=== PATIENT | female | born 1955 | race Caucasian/White ===

== ENCOUNTER 2018-03-25 07:39 | Emergency (ER) | payer MEDICARE, MEDICAID ==
[~2018-03-25] VITALS: Ht 160 cm; Wt 85.0 kg
[~2018-03-25 07:39] MED LIST: ARIP5TAB20 PO; ATOR20TA66 PO; BUSP10TA10 PO; CALC-1051 PO; CLON0.1T20 PO; DOCU250C96 PO; FERR325T28 PO; PANT40TA4 PO; TRAZ-146 PO; VENL150T3 PO; VITA1TAB37 PO
[2018-03-25] MEDS ORDERED: LORazepam 1 MG tablet PO ONE (07:50)
[2018-03-25 09:49] VITALS: BP 138/101
== END 2018-03-25 09:52 | disposition home or self-care (01) ==
LOC: ER 07:39
DX: F41.9 Anxiety disorder, unspecified (principal); E78.00 Pure hypercholesterolemia, unspecified; I10 Essential (primary) hypertension; K21.9 Gastro-esophageal reflux disease without esophagitis; E11.9 Type 2 diabetes mellitus without complications; Z60.2 Problems related to living alone; Z79.899 Other long term (current) drug therapy
CPT/HCPCS: 99284

== ENCOUNTER 2018-10-17 05:18 | Emergency (ER) | payer MEDICARE, MEDICAID ==
[~2018-10-17] VITALS: Ht 167.6 cm; Wt 75.0 kg
[~2018-10-17 05:18] MED LIST changes: -TRAZ-146 PO; +TRAZ-219 PO
[2018-10-17] MEDS ORDERED: normal saline 1000ML IV soln IVB ONE (05:25)
[2018-10-17] MEDS ORDERED: ondansetron/PF 4mg/2ml inj IV ONE ×2 (05:25→07:45)
[2018-10-17 05:48] LABS: BASOPHILS % (AUTO) 0.4 % (0-1); EOSINOPHILS # (AUTO) 0.2 X10'3 (0-0.9); EOSINOPHILS % (AUTO) 1.6 % (0-6); HEMATOCRIT 37.4 % (35.0-45.0); HEMOGLOBIN 12.6 g/dl (12.0-16.0); LYMPHOCYTES # (AUTO) 0.6 X10'3 (1.1-4.8); LYMPHOCYTES % (AUTO) 6.4 % (21-51); MEAN CORPUSCULAR HEMOGLOBIN 29.8 PG (27.0-31.0); MEAN CORPUSCULAR HGB CONC 33.6 % (33.0-36.5); MEAN CORPUSCULAR VOLUME 88.6 FL (78-98); MEAN PLATELET VOLUME 7.7 FL (7.4-10.4); MONOCYTES # (AUTO) 0.5 X10'3 (0-0.9); MONOCYTES % (AUTO) 4.8 % (2-12); NEUTROPHILS # (AUTO) 8.4 X10'3 (1.8-7.7); NEUTROPHILS % (AUTO) 86.8 % (42-75); PLATELET COUNT 303 X10'3 (140-440); RED BLOOD COUNT 4.23 X10'6 (4.20-5.60); RED CELL DISTRIBUTION WIDTH 14.2 % (11.5-14.5); WHITE BLOOD COUNT 9.7 X10'3 (4.5-11.0)
[2018-10-17 06:06] LABS: ALANINE AMINOTRANSFERASE 42 U/L (12-78); ALBUMIN 3.6 G/DL (3.4-5.0); ALBUMIN/GLOBULIN RATIO 1.1 (1.1-1.5); ALKALINE PHOSPHATASE 70 IU/L (46-116); ANION GAP 9 (8-16); ASPARTATE AMINO TRANSFERASE 18 U/L (10-37); BILIRUBIN,TOTAL 0.3 MG/DL (0.1-1.0); BLOOD UREA NITROGEN 19 MG/DL (7-18); BUN/CREATININE RATIO 21.8 (6.6-38.0); CHLORIDE 96 MMOL/L (99-107); CREATININE 0.87 MG/DL (0.40-0.90); GLUCOSE 150 MG/DL (70-104); LIPASE 116 U/L (73-393); POTASSIUM 3.7 MMOL/L (3.5-5.1); SODIUM 135 MMOL/L (135-145); TOTAL CARBON DIOXIDE 30.2 MMOL/L (24-32); TOTAL PROTEIN 6.8 G/DL (6.4-8.2); eGFR 66 ML/MIN
[2018-10-17 06:28] LABS: CLARITY,URINE SLIGHTLY CLOUDY (Clear); COLOR,URINE YELLOW (Yellow); GLUCOSE, URINE NEGATIVE (Neg); KETONES,URINE NEGATIVE (Neg); LEUKOCYTE ESTERASE ,URINE NEGATIVE (Neg); NITRITES, URINE POSITIVE (Neg); OCCULT BLOOD,URINE NEGATIVE (Neg); PH,URINE 8.5 (4.8-8.0); PROTEIN,URINE NEGATIVE (Neg); UROBILINOGEN,URINE 0.2 E.U/dL (0.2-1.0)
[2018-10-17 06:29] LABS: UA COLLECTION TYPE CLN CATCH MIDSTREAM
[2018-10-17 06:54] LABS: SQUAMOUS EPITHELIAL CELL,UR FEW /LPF (FEW)
[2018-10-17 06:56] LABS: BACTERIA,URINE 4+ /HPF (Neg); RBC,URINE 0-2 /HPF (0-2); WBC,URINE 0-4 /HPF (0-4)
[2018-10-17] MEDS ORDERED: morphine 4 MG/ML inj SYRINge IV ONE (07:45)
[2018-10-17] MEDS ORDERED: dicyclomine 10 MG capsule PO ONE (07:45)
[2018-10-17] MEDS ORDERED: LORazepam 2 mg/ml vial IV ONE ×2 (07:45→07:50)
[2018-10-17 08:03] LABS: ETHANOL < 0.010 GM/DL (0.0-0.010)
[2018-10-17] MEDS ORDERED: hyDROXYzine 50 mg/ml injection ***IM only IM ONE (11:15)
[2018-10-17] MEDS ORDERED: DICY10CA88 PO (11:17)
[2018-10-17] MEDS ORDERED: ONDA4TAB9 SL (11:17)
[2018-10-17 11:40] VITALS: BP 137/72
== END 2018-10-17 11:42 | disposition home or self-care (01) ==
LOC: ER 05:18
DX: K29.00 Acute gastritis without bleeding (principal); I10 Essential (primary) hypertension; E78.00 Pure hypercholesterolemia, unspecified; K21.9 Gastro-esophageal reflux disease without esophagitis; E11.9 Type 2 diabetes mellitus without complications; F17.200 Nicotine dependence, unspecified, uncomplicated; Z87.11 Personal history of peptic ulcer disease; Z87.19 Personal history of other diseases of the digestive system; Z79.899 Other long term (current) drug therapy; Z90.89 Acquired absence of other organs; Z60.2 Problems related to living alone
CPT/HCPCS: 36415; 80053; 80320; 81001; 83690; 85025; 87077; 87088; 87186; 96361; 96374; 96375; 96376; 99283; J2060; J2270; J2405; J3410; J7030

== ENCOUNTER 2021-11-20 10:50 | Day surgery (SDC) | payer MEDICARE, MEDICAID ==
[~2021-11-20] VITALS: Ht 165.1 cm; Wt 74.9 kg
[2021-11-20] VITALS (15 sets, daily range): BP systolic 86–137; BP diastolic 18–76
[~2021-11-20 10:50] MED LIST changes: +ARIP5TAB14 PO; -ARIP5TAB20 PO; -ATOR20TA66 PO; -BUSP10TA10 PO; -CLON0.1T20 PO; -DOCU250C96 PO; +DOXE50CA4 PO; +GABA-530 PO; +HYDR-3964 PO; +LISI20TA28 PO; +LORA-269 PO; +METO-395 PO; +PANT-47 PO; -PANT40TA4 PO; +SUCR1TAB PO; -TRAZ-219 PO
[2021-11-20 12:01] LABS: BASOPHILS # (AUTO) 0.1 X10'3 (0-0.2); BASOPHILS % (AUTO) 0.7 % (0-1); EOSINOPHILS # (AUTO) 0.3 X10'3 (0-0.9); EOSINOPHILS % (AUTO) 2.8 % (0-6); HEMATOCRIT 36.8 % (35.0-45.0); HEMOGLOBIN 12.3 g/dl (12.0-16.0); LYMPHOCYTES # (AUTO) 1.7 X10'3 (1.1-4.8); LYMPHOCYTES % (AUTO) 16.3 % (21-51); MEAN CORPUSCULAR HEMOGLOBIN 28.2 PG (27.0-31.0); MEAN CORPUSCULAR HGB CONC 33.3 g/dL (33.0-36.5); MEAN CORPUSCULAR VOLUME 84.6 FL (78-98); MEAN PLATELET VOLUME 7.5 FL (7.4-10.4); MONOCYTES # (AUTO) 0.7 X10'3 (0-0.9); MONOCYTES % (AUTO) 6.9 % (2-12); NEUTROPHILS # (AUTO) 7.7 X10'3 (1.8-7.7); NEUTROPHILS % (AUTO) 73.3 % (42-75); PLATELET COUNT 356 X10'3 (140-440); RED BLOOD COUNT 4.35 X10'6 (4.20-5.60); RED CELL DISTRIBUTION WIDTH 15.6 % (11.5-14.5); WHITE BLOOD COUNT 10.5 X10'3 (4.5-11.0)
[2021-11-20] MEDS ORDERED: midazolam 1 mg/ML 2ml injection ONE ×3 (12:33→13:37)
[2021-11-20] MEDS ORDERED: fentaNYL/PF 50MCG/1 ML 2ML syringe ONE ×2 (12:34→13:38)
[2021-11-20] MEDS ORDERED: gelatin sponge, absorbable (Gelfoam 12-7MM) sponge TP ONE (13:16)
== END 2021-11-20 16:30 | disposition home or self-care (01) ==
LOC: SSTAY O 10:50
PROVIDERS: ATTEND Preventive Medicine Aerospace Medicine
DX: K76.89 Other specified diseases of liver (principal); C78.7 Secondary malignant neoplasm of liver and intrahepatic bile duct; C20 Malignant neoplasm of rectum; I10 Essential (primary) hypertension; M85.80 Other specified disorders of bone density and structure, unspecified site; F32.9 Major depressive disorder, single episode, unspecified; G62.9 Polyneuropathy, unspecified; F17.210 Nicotine dependence, cigarettes, uncomplicated; Z98.890 Other specified postprocedural states; Z85.3 Personal history of malignant neoplasm of breast; Z79.899 Other long term (current) drug therapy
CPT/HCPCS: 36415; 47000; 77012; 85025; 88305; 88341; 88342; 99152; J2250; J3010; 99153

== ENCOUNTER 2021-12-04 11:33 | Emergency (ER) | payer MEDICARE, MEDICAID ==
[~2021-12-04] VITALS: Ht 167.6 cm; Wt 72.7 kg
[2021-12-04 11:51] VITALS: BP 150/93
--- NOTE | 2021-12-04 12:26 | NUR ---
PICC NURSE PAGED FOR PLACEMENT OF LINE.
[2021-12-04] MEDS ORDERED: morphine 4 MG/ML inj SYRINge IV PRN (12:30)
[2021-12-04] MEDS ORDERED: ondansetron/PF 4mg/2ml inj IV ONE (12:30)
[2021-12-04] MEDS ORDERED: normal saline 1000ML IV soln IVB ONE (12:30)
[2021-12-04 12:55] LABS: BASOPHILS # (AUTO) 0.1 X10'3 (0-0.2); BASOPHILS % (AUTO) 0.5 % (0-1); EOSINOPHILS # (AUTO) 0.3 X10'3 (0-0.9); EOSINOPHILS % (AUTO) 2.7 % (0-6); HEMATOCRIT 39.6 % (35.0-45.0); HEMOGLOBIN 13.1 g/dl (12.0-16.0); LYMPHOCYTES % (AUTO) 7.4 % (21-51); MEAN CORPUSCULAR HEMOGLOBIN 28.4 PG (27.0-31.0); MEAN CORPUSCULAR HGB CONC 33.1 g/dL (33.0-36.5); MEAN CORPUSCULAR VOLUME 85.7 FL (78-98); MEAN PLATELET VOLUME 8.1 FL (7.4-10.4); MONOCYTES # (AUTO) 0.8 X10'3 (0-0.9); MONOCYTES % (AUTO) 6.5 % (2-12); NEUTROPHILS # (AUTO) 10.7 X10'3 (1.8-7.7); NEUTROPHILS % (AUTO) 82.9 % (42-75); PLATELET COUNT 366 X10'3 (140-440); RED BLOOD COUNT 4.62 X10'6 (4.20-5.60); WHITE BLOOD COUNT 12.9 X10'3 (4.5-11.0)
[2021-12-04 13:07] LABS: ALANINE AMINOTRANSFERASE 16 U/L (12-78); ALBUMIN 3.6 G/DL (3.4-5.0); ALKALINE PHOSPHATASE 123 IU/L (46-116); ANION GAP 13 (8-16); ASPARTATE AMINO TRANSFERASE 13 U/L (10-37); BILIRUBIN,TOTAL 0.4 MG/DL (0.1-1.0); BLOOD UREA NITROGEN 13 MG/DL (7-18); BUN/CREATININE RATIO 14.1 (6.6-38.0); CHLORIDE 101 MMOL/L (99-107); CREATININE 0.92 MG/DL (0.40-0.90); GLUCOSE 136 MG/DL (70-104); LIPASE 200 U/L (73-393); POTASSIUM 3.8 MMOL/L (3.5-5.1); SODIUM 136 MMOL/L (135-145); TOTAL CARBON DIOXIDE 22.2 MMOL/L (24-32); TOTAL PROTEIN 7.1 G/DL (6.4-8.2); eGFR 61 ML/MIN
[2021-12-04] MEDS ORDERED: morphine 4 MG/ML inj SYRINge IM ONE (13:55)
[2021-12-04] MEDS ORDERED: ondansetron 4mg rapidly disintigrating tab PO ONE (13:55)
[2021-12-04] MEDS ORDERED: ONDA4TAB12 PO (14:56)
--- NOTE | 2021-12-04 15:34 | NUR ---
CALLED NANCY, PTS FRIEND, FOR PATIENT LOFT RIGGER.
== END 2021-12-04 15:36 | disposition home or self-care (01) ==
LOC: ER 11:33
DX: R10.84 Generalized abdominal pain (principal); R11.0 Nausea; E78.00 Pure hypercholesterolemia, unspecified; I10 Essential (primary) hypertension; K21.9 Gastro-esophageal reflux disease without esophagitis; E11.9 Type 2 diabetes mellitus without complications; F41.9 Anxiety disorder, unspecified; F32.9 Major depressive disorder, single episode, unspecified; Z87.11 Personal history of peptic ulcer disease; Z86.2 Personal history of diseases of the blood and blood-forming organs and certain disorders involving the immune mechanism; Z90.89 Acquired absence of other organs; Z98.890 Other specified postprocedural states; Z72.89 Other problems related to lifestyle; Z60.2 Problems related to living alone; Z79.899 Other long term (current) drug therapy
CPT/HCPCS: 36415; 80053; 83690; 85025; 96372; 99284; J2270

== ENCOUNTER 2021-12-08 15:16 | Inpatient (IN) | payer MEDICARE, MEDICAID ==
[~2021-12-08] VITALS: Ht 167.6 cm; Wt 72.7 kg
[~2021-12-08 15:16] MED LIST changes: +ONDA4TAB12 PO
[2021-12-08] MEDS ORDERED: ondansetron/PF 4mg/2ml inj IV ONE (15:35)
[2021-12-08] MEDS ORDERED: morphine 4 MG/ML inj SYRINge IV PRN (15:35)
[2021-12-08] MEDS ORDERED: normal saline 1000ML IV soln IVB ONE (15:35)
[2021-12-08 16:13] LABS: BASOPHILS # (AUTO) 0.1 X10'3 (0-0.2); BASOPHILS % (AUTO) 0.8 % (0-1); EOSINOPHILS # (AUTO) 0.3 X10'3 (0-0.9); EOSINOPHILS % (AUTO) 2.1 % (0-6); HEMOGLOBIN 14.4 g/dl (12.0-16.0); LYMPHOCYTES # (AUTO) 1.3 X10'3 (1.1-4.8); LYMPHOCYTES % (AUTO) 8.1 % (21-51); MEAN CORPUSCULAR HEMOGLOBIN 28.4 PG (27.0-31.0); MEAN CORPUSCULAR HGB CONC 33.5 g/dL (33.0-36.5); MEAN CORPUSCULAR VOLUME 84.8 FL (78-98); MONOCYTES # (AUTO) 1.2 X10'3 (0-0.9); MONOCYTES % (AUTO) 7.8 % (2-12); NEUTROPHILS # (AUTO) 12.8 X10'3 (1.8-7.7); NEUTROPHILS % (AUTO) 81.2 % (42-75); PLATELET COUNT 417 X10'3 (140-440); RED BLOOD COUNT 5.08 X10'6 (4.20-5.60); RED CELL DISTRIBUTION WIDTH 15.9 % (11.5-14.5); WHITE BLOOD COUNT 15.8 X10'3 (4.5-11.0)
[2021-12-08 16:18] LABS: ALANINE AMINOTRANSFERASE 18 U/L (12-78); ALBUMIN 4.2 G/DL (3.4-5.0); ALBUMIN/GLOBULIN RATIO 1.1 (1.1-1.5); ALKALINE PHOSPHATASE 143 IU/L (46-116); ANION GAP 11 (8-16); ASPARTATE AMINO TRANSFERASE 24 U/L (10-37); BILIRUBIN,TOTAL 0.4 MG/DL (0.1-1.0); BLOOD UREA NITROGEN 14 MG/DL (7-18); BUN/CREATININE RATIO 16.9 (6.6-38.0); CALCIUM 10.4 MG/DL (8.5-10.1); CHLORIDE 99 MMOL/L (99-107); CREATININE 0.83 MG/DL (0.40-0.90); GLUCOSE 105 MG/DL (70-104); LIPASE 110 U/L (73-393); POTASSIUM 4.5 MMOL/L (3.5-5.1); SODIUM 137 MMOL/L (135-145); TOTAL CARBON DIOXIDE 27.3 MMOL/L (24-32); eGFR 69 ML/MIN
[2021-12-08] MEDS ORDERED: iohexol 300mg/ml 100ml inj. ONE (17:32)
--- NOTE | 2021-12-08 18:05 | NUR ---
pt up to bsc independently, urine sent to lab.
[2021-12-08 18:14] LABS: CLARITY,URINE CLEAR (Clear); COLOR,URINE YELLOW (Yellow); GLUCOSE, URINE NEGATIVE (Neg); KETONES,URINE NEGATIVE (Neg); LEUKOCYTE ESTERASE ,URINE NEGATIVE (Neg); NITRITES, URINE NEGATIVE (Neg); OCCULT BLOOD,URINE NEGATIVE (Neg); PROTEIN,URINE NEGATIVE (Neg); UA COLLECTION TYPE CLN CATCH MIDSTREAM; UROBILINOGEN,URINE 0.2 E.U/dL (0.2-1.0)
[2021-12-08] MEDS ORDERED: LORazepam 2 mg/ml vial IV ONE (19:45)
[2021-12-08] MEDS ORDERED: BUSP5TAB3 (21:38)
[2021-12-08] MEDS ORDERED: ERGO400C2 (21:38)
[2021-12-08] MEDS ORDERED: PROP10TA10 PO (21:38)
[2021-12-08] MEDS ORDERED: NORT25CA PO (21:38)
[2021-12-08] MEDS ORDERED: OMEG1CAP46 PO (21:43)
[2021-12-08] MEDS ORDERED: PUMP300C PO (21:43)
[2021-12-09] VITALS (24 sets, daily range): BP systolic 100–182; BP diastolic 61–123
[2021-12-09] MEDS ORDERED: mag hydrox/Alum hydrox/simeth 30ml oral suspension PO PRN (00:05)
[2021-12-09] MEDS ORDERED: diphenhydrAMINE 50 mg/ml inj IV PRN (00:05)
[2021-12-09] MEDS ORDERED: acetaminophen 325mg tablet PO PRN (00:05)
[2021-12-09] MEDS ORDERED: acetaminophen 650mg rectal suppository RC PRN (00:05)
[2021-12-09] MEDS ORDERED: diphenhydrAMINE 25mg capsule PO PRN (00:05)
[2021-12-09] MEDS ORDERED: bisacodyl 10mg suppository rectal RC PRN (00:05)
[2021-12-09] MEDS ORDERED: magnesium hydroxide 30ml (MOM) UD suspension PO PRN (00:05)
--- NOTE | 2021-12-09 02:08 | NUR ---
Called report to SCU room 345.
[2021-12-09] MEDS: normal saline 1000ml 1,000 ML IV SCH ×3 (02:58→22:22)
[2021-12-09] MEDS: acetaminophen 325mg tablet PO PRN ×3 (02:59→05:10)
[2021-12-09] MEDS: LORazepam 1 MG tablet PO PRN (02:59)
[2021-12-09 06:16] LABS: APTT 27 SECONDS (22-32)
--- NOTE | 2021-12-09 07:00 | NUR ---
Patient in room [facility] 345. I have received report from BRANDON COFFEY and had the opportunity to ask questions and assume patient care.
[2021-12-09 07:31] LABS: MAGNESIUM 1.9 MG/DL (1.5-2.4); PHOSPHORUS 4.4 MG/DL (2.3-4.5)
[2021-12-09] MEDS: venlafaxine XR 75mg capsule (Q24H) PO SCH (08:00)
[2021-12-09] MEDS: ferrous sulfate 325mg tablet PO SCH (08:00)
[2021-12-09] MEDS: docusate sod 100mg capsule PO SCH ×2 (08:00→19:27)
[2021-12-09] MEDS ORDERED: lisinopril 20mg tablet PO SCH (08:00)
[2021-12-09 08:49] LABS: BASOPHILS % (AUTO) 0.6 % (0-1); EOSINOPHILS # (AUTO) 0.3 X10'3 (0-0.9); HEMATOCRIT 39.9 % (35.0-45.0); HEMOGLOBIN 13.2 g/dl (12.0-16.0); LYMPHOCYTES # (AUTO) 1.5 X10'3 (1.1-4.8); LYMPHOCYTES % (AUTO) 17.6 % (21-51); MEAN CORPUSCULAR HEMOGLOBIN 28.6 PG (27.0-31.0); MEAN CORPUSCULAR HGB CONC 33.2 g/dL (33.0-36.5); MEAN CORPUSCULAR VOLUME 86.1 FL (78-98); MEAN PLATELET VOLUME 7.9 FL (7.4-10.4); MONOCYTES # (AUTO) 0.8 X10'3 (0-0.9); MONOCYTES % (AUTO) 9.4 % (2-12); NEUTROPHILS # (AUTO) 5.9 X10'3 (1.8-7.7); NEUTROPHILS % (AUTO) 69.4 % (42-75); PLATELET COUNT 346 X10'3 (140-440); RED BLOOD COUNT 4.64 X10'6 (4.20-5.60); RED CELL DISTRIBUTION WIDTH 16.1 % (11.5-14.5); WHITE BLOOD COUNT 8.5 X10'3 (4.5-11.0)
[2021-12-09] MEDS ORDERED: BUPIVAcaine/PF 2.5mg/ml (0.25%) 10ml vial ONE (09:07)
[2021-12-09] MEDS ORDERED: tobramycin 40mg/ml inj ONE (09:07)
[2021-12-09] MEDS ORDERED: LIDOcaine 1% W/epiNEPHrine 1:100,000 20ml vial ONE (09:08)
[2021-12-09] MEDS: pantoprazole 40MG/NS 100ML BAG 100 ML IV SCH (09:08)
--- NOTE | 2021-12-09 09:13 | NUR ---
PAGER ID: [phone] MESSAGE: [id number] Laws, S: patient very anxious and tearful regarding surgery. Ativan order is daily. would you like a one time dose? thank you! glenn [phone]
[2021-12-09] MEDS: metoprolol succinate 25mg (24-HOUR) SR. Tablet PO SCH (09:14)
[2021-12-09] MEDS ORDERED: LORazepam 2 mg/ml vial IV ONE ×3 (09:30→19:05)
[2021-12-09 10:14] LABS: ALANINE AMINOTRANSFERASE 15 U/L (12-78); ALBUMIN 3.6 G/DL (3.4-5.0); ALBUMIN/GLOBULIN RATIO 1.2 (1.1-1.5); ALKALINE PHOSPHATASE 119 IU/L (46-116); ANION GAP 9 (8-16); ASPARTATE AMINO TRANSFERASE 11 U/L (10-37); BILIRUBIN,TOTAL 0.3 MG/DL (0.1-1.0); BLOOD UREA NITROGEN 11 MG/DL (7-18); BUN/CREATININE RATIO 18.6 (6.6-38.0); CALCIUM 8.7 MG/DL (8.5-10.1); CHLORIDE 107 MMOL/L (99-107); CREATININE 0.59 MG/DL (0.40-0.90); GLUCOSE 102 MG/DL (70-104); POTASSIUM 4.6 MMOL/L (3.5-5.1); SODIUM 140 MMOL/L (135-145); TOTAL CARBON DIOXIDE 23.6 MMOL/L (24-32); TOTAL PROTEIN 6.7 G/DL (6.4-8.2); eGFR > 90 ML/MIN
[2021-12-09 10:15] LABS: PREALBUMIN 28.6 MG/DL (19-36)
[2021-12-09] MEDS: piperacillin/tazo 3.375gm/50ml 50 ML IV SCH ×3 (10:22→23:47)
[2021-12-09] MEDS ORDERED: midazolam 1 mg/ML 2ml injection ONE (10:30)
[2021-12-09] MEDS ORDERED: fentaNYL /PF 50mcg/ml 5ml ampule ONE (10:31)
[2021-12-09] MEDS ORDERED: dexmedetomidine 200mcg/2ml inj. IV ONE (10:33)
[2021-12-09] MEDS ORDERED: hydrALAZINE 20mg/ml inj. IV PRN (10:40)
[2021-12-09] MEDS ORDERED: morphine 2 MG/ML inj. syringe IV PRN (10:40)
[2021-12-09] MEDS ORDERED: ringers solution, lacted 1,000 ML IV SCH (10:40)
[2021-12-09] MEDS ORDERED: ondansetron/PF 4mg/2ml inj IV PRN (10:40)
[2021-12-09] MEDS ORDERED: morphine 4 MG/ML inj SYRINge IV PRN (10:40)
[2021-12-09] MEDS ORDERED: fentaNYL/PF 50MCG/1 ML 2ML syringe IV PRN ×2 (10:40)
[2021-12-09] MEDS ORDERED: labetalol 20mg/4ml (5mg/ml) syringe IV PRN (10:40)
[2021-12-09] MEDS ORDERED: sevoflurane 250ml liquid IH ONE (10:55)
[2021-12-09] MEDS ORDERED: desflurane 240ml liquid inh. IH ONE (10:55)
[2021-12-09] MEDS ORDERED: metroNIDAZOLE-Flagyl 500mg/NS 100 ML IV ONE (11:11)
--- NOTE | 2021-12-09 11:11 | NUR ---
report called to ERLINDA Baron.
[2021-12-09] MEDS ORDERED: dexamethasone sod phosphate 4mg/ml inj. ONE (11:19)
[2021-12-09] MEDS ORDERED: ondansetron/PF 4mg/2ml inj ONE (11:19)
[2021-12-09] MEDS ORDERED: propofol inj 20 ML IV ONE (11:21)
[2021-12-09] MEDS ORDERED: LIDOcaine 2% (20mg/ml) 5ml vial ONE (11:21)
[2021-12-09] MEDS ORDERED: glycopyrrolate 0.2mg/ml inj ONE (11:22)
[2021-12-09] MEDS ORDERED: rocuronium 10mg/ml inj IV ONE ×2 (11:22→12:01)
[2021-12-09] MEDS ORDERED: neostigmine methylsulfate 1 MG/ML 10ml vial ONE (11:22)
[2021-12-09] MEDS ORDERED: povidone-iodine 10% ointment 1 APPLIC APPLIC TP ONE (12:43)
[2021-12-09] MEDS ORDERED: labetalol 20mg/4ml (5mg/ml) syringe IV ONE ×2 (13:29→14:02)
--- NOTE | 2021-12-09 14:30 | NUR ---
Received from OR via hospital bed, accompanied by Anesthesiologist DR KRISHNAMURTHY and report given by Anesthesiolgist. PT PRESENT WITH 20G RIGHT FOOT, 2X HARJEET DRAINS ON RIGHT ABD, WITH COLECTOMY. VSS. Addendum: 12/09/21 at 1521 by Divine Jain RN RN Amended: Links added.
[2021-12-09] MEDS ORDERED: HYDROmorph./NS 0.2 mg/ml CADD 100 ML IV SCH (14:40)
[2021-12-09] MEDS ORDERED: HYDROmorphone (Dilaudid)/NS 0.2 mg/ml 100ml CADD ONE (15:11)
--- NOTE | 2021-12-09 15:20 | NUR ---
PIC NURSE AT BEDSIDE PLACING PIV. Addendum: 12/09/21 at 1525 by Divine Jain RN RN Amended: Links added.
[2021-12-09] MEDS ORDERED: ceFOXitin 1 GM/D5W 50mL IVPB 50 ML IV SCH (16:00)
--- NOTE | 2021-12-09 16:13 | NUR ---
Received report from ERLINDA Haskins. Awaiting patient arrival.
--- NOTE | 2021-12-09 16:30 | NUR ---
Report called to receiving nurse MARIAN COFFEY. Transferred via HOSPITAL BED WITH UPPER AND LOWER DENTURES IN A DENTURE CASE IN A BAG HOOKED TO THE PT CHART. Belongings WERE LEFT IN PT [id number]. BED IN LOW LOCKED POSITION WITH CALL LIGHT IN REACH. Special Issues communicated to receiving nurse. Addendum: 12/09/21 at 1638 by Divine Jain RN RN Amended: Links added.
[2021-12-09] MEDS: HYDROmorph./NS 0.2 mg/ml CADD 100 ML IV SCH ×4 (17:00→21:31)
[2021-12-09] MEDS ORDERED: naloxone 0.4 mg/ml inj IV PRN (17:00)
[2021-12-09] MEDS: ceFOXitin inj 1,000 MG in normal saline 100ml IV soln 100 ML IV SCH ×2 (17:16→23:46)
--- NOTE | 2021-12-09 17:24 | NUR ---
CADD order was corrected in recovery room. Medication was already infusing prior to arrival.
--- NOTE | 2021-12-09 18:15 | NUR ---
Patient in room [facility] 345A. I have received report from ERLINDA Cardona and SN Vaughn and had the opportunity to ask questions and assume patient care.
--- NOTE | 2021-12-09 18:18 | NUR ---
Problems reprioritized. Patient report given, questions answered & plan of care reviewed with FERMÍN COFFEY.
--- NOTE | 2021-12-09 18:22 | NUR ---
Student documentation: I have reviewed and agree with all interventions, assessments performed and documented by SN Vaughn. Student Medication Administration: For this medication-pass time frame, all medication were reviewed, dispensed, administered and documented per hospital policy by SN Vaughn.
[2021-12-09] MEDS ORDERED: HYDROmorphone inj. 0.5 MG/0.5 ML DISP.SYRIN IV ONE (19:05)
--- NOTE | 2021-12-09 19:25 | NUR ---
Patient's 1600 dose of Mefoxin 1000mg/NS 100ml bag was hung at 1716 without being reconstituted. Notified Pharmacist, and was instructed to make a note and give the next dose on time. Next dose of Mefoxin will be administered at or around 0000 12/10/2021.
[2021-12-09] MEDS: metroNIDAZOLE-Flagyl 500mg/NS 100 ML IV SCH (19:28)
[2021-12-09] MEDS ORDERED: temazepam 15mg capsule PO PRN (21:00)
[2021-12-09] MEDS: doxepin 25mg capsule PO SCH (22:21)
[2021-12-09] MEDS: polyethylene glycol 3350 17gm powd pack PO SCH (22:21)
[2021-12-09] MEDS: gabapentin 300mg capsule PO SCH (22:21)
[2021-12-10] VITALS: BP_SYST 149; BP_SYST 170; BP_DIAS 85; BP_DIAS 97
[2021-12-10] MEDS: HYDROmorph./NS 0.2 mg/ml CADD 100 ML IV SCH ×12 (00:12→23:00)
[2021-12-10] MEDS: metroNIDAZOLE-Flagyl 500mg/NS 100 ML IV SCH ×3 (01:04→15:29)
[2021-12-10 04:00] VITALS: BP 128/69
[2021-12-10 05:59] LABS: BASOPHILS % (AUTO) 0.2 % (0-1); EOSINOPHILS % (AUTO) 0 % (0-6); HEMATOCRIT 37.7 % (35.0-45.0); HEMOGLOBIN 12.3 g/dl (12.0-16.0); LYMPHOCYTES # (AUTO) 1.1 X10'3 (1.1-4.8); LYMPHOCYTES % (AUTO) 5.5 % (21-51); MEAN CORPUSCULAR HEMOGLOBIN 28.1 PG (27.0-31.0); MEAN CORPUSCULAR HGB CONC 32.5 g/dL (33.0-36.5); MEAN CORPUSCULAR VOLUME 86.3 FL (78-98); MEAN PLATELET VOLUME 8.3 FL (7.4-10.4); MONOCYTES # (AUTO) 1.8 X10'3 (0-0.9); MONOCYTES % (AUTO) 9.4 % (2-12); NEUTROPHILS # (AUTO) 16.2 X10'3 (1.8-7.7); NEUTROPHILS % (AUTO) 84.9 % (42-75); PLATELET COUNT 374 X10'3 (140-440); RED BLOOD COUNT 4.37 X10'6 (4.20-5.60); RED CELL DISTRIBUTION WIDTH 16.3 % (11.5-14.5); WHITE BLOOD COUNT 19.1 X10'3 (4.5-11.0)
[2021-12-10] MEDS: normal saline 1000ml 1,000 ML IV SCH ×3 (06:05→23:36)
--- NOTE | 2021-12-10 06:30 | NUR ---
Problems reprioritized. Patient report given, questions answered & plan of care reviewed with ERLINDA Cardona.
[2021-12-10 06:39] LABS: ALANINE AMINOTRANSFERASE 17 U/L (12-78); ALBUMIN 3.2 G/DL (3.4-5.0); ALBUMIN/GLOBULIN RATIO 1.1 (1.1-1.5); ALKALINE PHOSPHATASE 102 IU/L (46-116); ANION GAP 11 (8-16); ASPARTATE AMINO TRANSFERASE 17 U/L (10-37); BILIRUBIN,TOTAL 0.3 MG/DL (0.1-1.0); BLOOD UREA NITROGEN 9 MG/DL (7-18); BUN/CREATININE RATIO 15.3 (6.6-38.0); CALCIUM 8.2 MG/DL (8.5-10.1); CHLORIDE 106 MMOL/L (99-107); CHOL/HDL RATIO 2.4 (0.00-4.99); CHOLESTEROL 127 MG/DL (0-200); CREATININE 0.59 MG/DL (0.40-0.90); GLUCOSE 127 MG/DL (70-104); HDL CHOLESTEROL 52 MG/DL (35-60); LDL CHOLESTEROL 57 MG/DL (50-100); POTASSIUM 4.4 MMOL/L (3.5-5.1); SODIUM 141 MMOL/L (135-145); TOTAL CARBON DIOXIDE 23.8 MMOL/L (24-32); TOTAL PROTEIN 6.1 G/DL (6.4-8.2); TRIGLYCERIDES 90 MG/DL (20-135); eGFR > 90 ML/MIN
[2021-12-10 07:00] VITALS: BP 144/76
--- NOTE | 2021-12-10 07:52 | NUR ---
Page sent to PICC RN... [id number] Vanessa Gonzáles: patient needs PIV. her foot IV came out on noc shift. if you have time, please and thank you!:) glenn [phone]
[2021-12-10] MEDS: ceFOXitin inj 1,000 MG in normal saline 100ml IV soln 100 ML IV SCH ×2 (07:59→15:29)
[2021-12-10] MEDS: venlafaxine XR 75mg capsule (Q24H) PO SCH (07:59)
[2021-12-10] MEDS: polyethylene glycol 3350 17gm powd pack PO SCH ×3 (07:59→21:52)
[2021-12-10] MEDS: ferrous sulfate 325mg tablet PO SCH (07:59)
[2021-12-10] MEDS: docusate sod 100mg capsule PO SCH ×2 (07:59→19:24)
[2021-12-10] MEDS: metoprolol succinate 25mg (24-HOUR) SR. Tablet PO SCH (08:06)
[2021-12-10] MEDS: ondansetron/PF 4mg/2ml inj IV PRN ×2 (08:14→18:33)
[2021-12-10] MEDS: LORazepam 2 mg/ml vial IV PRN (08:18)
[2021-12-10] MEDS: piperacillin/tazo 3.375gm/50ml 50 ML IV SCH ×2 (09:02→16:31)
[2021-12-10] MEDS: pantoprazole 40MG/NS 100ML BAG 100 ML IV SCH (10:25)
[2021-12-10 12:47] VITALS: BP 118/74
--- NOTE | 2021-12-10 17:28 | NUR ---
DAUGHERTY CATHETER DC'D PER MD ORDERS. NO COMPLICATIONS.
--- NOTE | 2021-12-10 18:30 | NUR ---
Problems reprioritized. Patient report given, questions answered & plan of care reviewed with ERLINDA KOVACS.
[2021-12-10] MEDS: CADD PCA waste documentation MC PRN (19:39)
[2021-12-10 20:00] VITALS: BP 105/55
[2021-12-10] MEDS: gabapentin 300mg capsule PO SCH ×2 (21:00→21:52)
[2021-12-10] MEDS: doxepin 25mg capsule PO SCH (21:52)
[2021-12-11] VITALS: BP 100/56
[2021-12-11] MEDS: piperacillin/tazo 3.375gm/50ml 50 ML IV SCH ×4 (00:26→23:51)
[2021-12-11] MEDS: ondansetron 4mg rapidly disintigrating tab PO PRN ×2 (00:41→07:23)
[2021-12-11] MEDS: LORazepam 1 MG tablet PO PRN ×3 (00:41→23:21)
[2021-12-11] MEDS: HYDROmorph./NS 0.2 mg/ml CADD 100 ML IV SCH ×12 (01:00→23:00)
--- NOTE | 2021-12-11 06:10 | NUR ---
Problems reprioritized. Patient report given, questions answered & plan of care reviewed with ERLINDA Cardona.
[2021-12-11 06:20] LABS: BASOPHILS % (AUTO) 0.3 % (0-1); EOSINOPHILS # (AUTO) 0.1 X10'3 (0-0.9); EOSINOPHILS % (AUTO) 0.7 % (0-6); HEMATOCRIT 31.7 % (35.0-45.0); HEMOGLOBIN 10.3 g/dl (12.0-16.0); LYMPHOCYTES # (AUTO) 1.1 X10'3 (1.1-4.8); LYMPHOCYTES % (AUTO) 8.1 % (21-51); MEAN CORPUSCULAR HEMOGLOBIN 28.5 PG (27.0-31.0); MEAN CORPUSCULAR HGB CONC 32.4 g/dL (33.0-36.5); MEAN CORPUSCULAR VOLUME 88.1 FL (78-98); MEAN PLATELET VOLUME 8.3 FL (7.4-10.4); MONOCYTES # (AUTO) 1.2 X10'3 (0-0.9); MONOCYTES % (AUTO) 8.8 % (2-12); NEUTROPHILS % (AUTO) 82.1 % (42-75); PLATELET COUNT 292 X10'3 (140-440); RED CELL DISTRIBUTION WIDTH 16.2 % (11.5-14.5); WHITE BLOOD COUNT 13.4 X10'3 (4.5-11.0)
[2021-12-11 06:44] LABS: ALANINE AMINOTRANSFERASE 17 U/L (12-78); ALBUMIN 2.6 G/DL (3.4-5.0); ALKALINE PHOSPHATASE 75 IU/L (46-116); ANION GAP 8 (8-16); ASPARTATE AMINO TRANSFERASE 24 U/L (10-37); BILIRUBIN,TOTAL 0.3 MG/DL (0.1-1.0); BLOOD UREA NITROGEN 7 MG/DL (7-18); BUN/CREATININE RATIO 12.1 (6.6-38.0); CALCIUM 7.8 MG/DL (8.5-10.1); CHLORIDE 108 MMOL/L (99-107); CREATININE 0.58 MG/DL (0.40-0.90); GLUCOSE 116 MG/DL (70-104); POTASSIUM 4.1 MMOL/L (3.5-5.1); SODIUM 141 MMOL/L (135-145); TOTAL CARBON DIOXIDE 24.8 MMOL/L (24-32); TOTAL PROTEIN 5.3 G/DL (6.4-8.2); eGFR > 90 ML/MIN
[2021-12-11 07:00] VITALS: BP 91/57
[2021-12-11] MEDS: venlafaxine XR 75mg capsule (Q24H) PO SCH (08:00)
[2021-12-11] MEDS: metoprolol succinate 25mg (24-HOUR) SR. Tablet PO SCH (08:00)
[2021-12-11] MEDS: ferrous sulfate 325mg tablet PO SCH (08:00)
[2021-12-11] MEDS ORDERED: magnesium hydroxide 30ml (MOM) UD suspension PO ONE (08:15)
[2021-12-11] MEDS: pantoprazole 40MG/NS 100ML BAG 100 ML IV SCH (09:09)
[2021-12-11] MEDS: polyethylene glycol 3350 17gm powd pack PO SCH ×3 (09:09→22:18)
[2021-12-11] MEDS: docusate sod 100mg capsule PO SCH ×2 (09:10→22:17)
--- NOTE | 2021-12-11 10:00 | NUR ---
bladder scan showed 0mL in bladder. Hospitalist aware.
[2021-12-11 11:00] VITALS: BP 122/74
[2021-12-11] MEDS: ondansetron/PF 4mg/2ml inj IV PRN ×2 (11:55→20:32)
[2021-12-11] MEDS: normal saline 1000ml 1,000 ML IV SCH ×2 (12:04→22:31)
--- NOTE | 2021-12-11 15:48 | NUR ---
[facility] assessment for ostomy education and hand outs. Pt is s/p laparoscopic low anterior resection, complicated by involvement of the rectovaginal septum, sigmoid colostomy. Pt found to have liver metastasis, left pelvic side wall implant, mid rectal mass adherent to and involving the rectovaginal septum, distal rectum able to be divided, TME performed, closed peritoneum over the empty pelvis including the bilateral fallopian tubes and dome of the uterus. Pt unable to participate in education today due to nausea. Will re approach tomorrow. Provided her with colostomy packet and To Go Kit hand out. See wound note Addendum: 12/11/21 at 1555 by Megan Britton RN Amended: Links added.
[2021-12-11] MEDS: CADD PCA waste documentation MC PRN (17:49)
--- NOTE | 2021-12-11 18:23 | NUR ---
Problems reprioritized. Patient report given, questions answered & plan of care reviewed with ERLINDA Moore.
[2021-12-11 20:00] VITALS: BP 125/70
[2021-12-11] MEDS: pantoprazole 40mg Tablet.DR PO SCH (22:16)
[2021-12-11] MEDS: doxepin 25mg capsule PO SCH (22:18)
[2021-12-11] MEDS: gabapentin 300mg capsule PO SCH (23:18)
[2021-12-12] VITALS: BP 130/81
[2021-12-12] MEDS: HYDROmorph./NS 0.2 mg/ml CADD 100 ML IV SCH ×7 (01:00→13:00)
[2021-12-12] MEDS: ondansetron/PF 4mg/2ml inj IV PRN (02:16)
[2021-12-12 06:16] LABS: BASOPHILS # (AUTO) 0.1 X10'3 (0-0.2); BASOPHILS % (AUTO) 0.8 % (0-1); EOSINOPHILS # (AUTO) 0.3 X10'3 (0-0.9); HEMATOCRIT 32.2 % (35.0-45.0); HEMOGLOBIN 10.5 g/dl (12.0-16.0); LYMPHOCYTES # (AUTO) 1.2 X10'3 (1.1-4.8); LYMPHOCYTES % (AUTO) 11.5 % (21-51); MEAN CORPUSCULAR HEMOGLOBIN 28.2 PG (27.0-31.0); MEAN CORPUSCULAR HGB CONC 32.4 g/dL (33.0-36.5); MEAN PLATELET VOLUME 8.4 FL (7.4-10.4); MONOCYTES # (AUTO) 0.9 X10'3 (0-0.9); MONOCYTES % (AUTO) 8.8 % (2-12); NEUTROPHILS # (AUTO) 8.2 X10'3 (1.8-7.7); NEUTROPHILS % (AUTO) 75.9 % (42-75); PLATELET COUNT 311 X10'3 (140-440); RED CELL DISTRIBUTION WIDTH 16.3 % (11.5-14.5); WHITE BLOOD COUNT 10.8 X10'3 (4.5-11.0)
[2021-12-12 06:35] LABS: ALANINE AMINOTRANSFERASE 18 U/L (12-78); ALBUMIN 2.7 G/DL (3.4-5.0); ALKALINE PHOSPHATASE 78 IU/L (46-116); ANION GAP 6 (8-16); ASPARTATE AMINO TRANSFERASE 20 U/L (10-37); BILIRUBIN,TOTAL 0.5 MG/DL (0.1-1.0); BLOOD UREA NITROGEN 5 MG/DL (7-18); BUN/CREATININE RATIO 7.8 (6.6-38.0); C-REACTIVE PROTEIN 10.85 MG/DL (0.0-0.5); CALCIUM 7.6 MG/DL (8.5-10.1); CHLORIDE 108 MMOL/L (99-107); CREATININE 0.64 MG/DL (0.40-0.90); GLUCOSE 99 MG/DL (70-104); POTASSIUM 3.9 MMOL/L (3.5-5.1); SODIUM 143 MMOL/L (135-145); TOTAL CARBON DIOXIDE 28.9 MMOL/L (24-32); TOTAL PROTEIN 5.5 G/DL (6.4-8.2); eGFR > 90 ML/MIN
[2021-12-12 07:00] VITALS: BP 124/75
[2021-12-12] MEDS: docusate sod 100mg capsule PO SCH ×2 (07:59→20:31)
[2021-12-12] MEDS: metoprolol succinate 25mg (24-HOUR) SR. Tablet PO SCH (07:59)
[2021-12-12] MEDS: pantoprazole 40mg Tablet.DR PO SCH ×2 (08:00→20:20)
[2021-12-12] MEDS: ferrous sulfate 325mg tablet PO SCH (08:00)
[2021-12-12] MEDS: piperacillin/tazo 3.375gm/50ml 50 ML IV SCH ×3 (08:00→23:33)
[2021-12-12] MEDS: venlafaxine XR 75mg capsule (Q24H) PO SCH (08:00)
[2021-12-12] MEDS: polyethylene glycol 3350 17gm powd pack PO SCH ×3 (08:00→20:20)
[2021-12-12] MEDS: ondansetron 4mg rapidly disintigrating tab PO PRN ×2 (08:18→15:13)
[2021-12-12] MEDS: normal saline 1000ml 1,000 ML IV SCH ×3 (09:10→20:28)
[2021-12-12 12:32] VITALS: BP 115/68
[2021-12-12] MEDS: CADD PCA waste documentation MC PRN (14:25)
[2021-12-12] MEDS ORDERED: HYDROcodone/acetaminophen 10/325mg tab PO PRN (14:30)
[2021-12-12] MEDS: HYDROcodone/acetaminophen 10/325mg tab PO PRN ×2 (15:04→20:19)
[2021-12-12] MEDS: HYDROmorphone inj. 0.5 MG/0.5 ML DISP.SYRIN IV PRN ×2 (18:00→23:03)
--- NOTE | 2021-12-12 18:35 | NUR ---
Problems reprioritized. Patient report given, questions answered & plan of care reviewed with ERLINDA MATHEWS.
[2021-12-12 20:00] VITALS: BP 123/77
--- NOTE | 2021-12-12 20:18 | NUR ---
Pt was alert and oriented x4. Pt states she was just medicated for pain, and would like to have teaching done at another time. Pt is requesting to have mirror provided for teaching. Reviewed with pt how to burp pouch and resources once pt is discharged with home health. Pt did consent to having secure start program started. Diverting sigmoid colostomy LMQ stoma is pink, edematous and buoyant through pouch. Pt requested that have more teaching done tomorrow. Pt states she might be discharged home this weekend, not sure if shes having home health. Educated pt on how to order ostomy supplies are special order item. Pt states understanding. Addendum: 12/12/21 at 2023 by Elisa Duke RN Amended: Links added. Addendum: 12/13/21 at 0703 by Yulisa Obregon RN Patient in room [facility] 345. I have received report from Teresa COFFEY and had the opportunity to ask questions and assume patient care.
[2021-12-12] MEDS: doxepin 25mg capsule PO SCH (20:30)
[2021-12-12] MEDS: gabapentin 300mg capsule PO SCH (20:30)
[2021-12-13] VITALS: BP 121/71
[2021-12-13] MEDS: HYDROcodone/acetaminophen 10/325mg tab PO PRN ×5 (00:44→20:38)
[2021-12-13] MEDS: HYDROmorphone inj. 0.5 MG/0.5 ML DISP.SYRIN IV PRN ×2 (04:11→18:01)
[2021-12-13] MEDS: normal saline 1000ml 1,000 ML IV SCH (04:47)
[2021-12-13 05:58] LABS: BASOPHILS # (AUTO) 0.1 X10'3 (0-0.2); BASOPHILS % (AUTO) 0.8 % (0-1); EOSINOPHILS # (AUTO) 0.4 X10'3 (0-0.9); EOSINOPHILS % (AUTO) 5.5 % (0-6); HEMATOCRIT 30.6 % (35.0-45.0); HEMOGLOBIN 9.8 g/dl (12.0-16.0); LYMPHOCYTES # (AUTO) 0.9 X10'3 (1.1-4.8); LYMPHOCYTES % (AUTO) 12.8 % (21-51); MEAN CORPUSCULAR HGB CONC 32.2 g/dL (33.0-36.5); MEAN PLATELET VOLUME 8.1 FL (7.4-10.4); MONOCYTES # (AUTO) 0.8 X10'3 (0-0.9); MONOCYTES % (AUTO) 11.9 % (2-12); NEUTROPHILS # (AUTO) 4.7 X10'3 (1.8-7.7); PLATELET COUNT 307 X10'3 (140-440); RED BLOOD COUNT 3.51 X10'6 (4.20-5.60); RED CELL DISTRIBUTION WIDTH 15.8 % (11.5-14.5); WHITE BLOOD COUNT 6.8 X10'3 (4.5-11.0)
[2021-12-13 06:18] LABS: ALANINE AMINOTRANSFERASE 15 U/L (12-78); ALBUMIN 2.5 G/DL (3.4-5.0); ALKALINE PHOSPHATASE 73 IU/L (46-116); ANION GAP 5 (8-16); ASPARTATE AMINO TRANSFERASE 15 U/L (10-37); BILIRUBIN,TOTAL 0.5 MG/DL (0.1-1.0); BLOOD UREA NITROGEN 3 MG/DL (7-18); BUN/CREATININE RATIO 4.6 (6.6-38.0); CALCIUM 7.5 MG/DL (8.5-10.1); CHLORIDE 108 MMOL/L (99-107); CREATININE 0.65 MG/DL (0.40-0.90); GLUCOSE 88 MG/DL (70-104); POTASSIUM 3.7 MMOL/L (3.5-5.1); SODIUM 142 MMOL/L (135-145); TOTAL CARBON DIOXIDE 28.8 MMOL/L (24-32); eGFR > 90 ML/MIN
[2021-12-13 07:00] VITALS: BP_SYST 100; BP_SYST 133; BP_DIAS 62; BP_DIAS 76
[2021-12-13] MEDS: pantoprazole 40mg Tablet.DR PO SCH ×2 (08:47→20:36)
[2021-12-13] MEDS: docusate sod 100mg capsule PO SCH ×2 (08:49→20:36)
[2021-12-13] MEDS: polyethylene glycol 3350 17gm powd pack PO SCH ×3 (08:50→20:36)
[2021-12-13] MEDS: metoprolol succinate 25mg (24-HOUR) SR. Tablet PO SCH (08:50)
[2021-12-13] MEDS: venlafaxine XR 75mg capsule (Q24H) PO SCH (08:50)
[2021-12-13] MEDS: ferrous sulfate 325mg tablet PO SCH (08:51)
--- NOTE | 2021-12-13 09:01 | NUR ---
Patient's peripheral IV catheter on her left arm was found almost out and catheter bended. Discontinued IV, I told patient she will need a new peripheral IV catheter so we can give her IV antibiotic. She refusing me to do the insertion, she states "I need to have someone who has the ultrasound machine to put an IV on me. I cant have an IV on my right arm as I had lumpectomy, I'm not an easy one!"
--- NOTE | 2021-12-13 09:08 | NUR ---
Paged PICC nurse Surgical Yulisa RN ext [phone]. RE: Manuela Gonzáles. Patient requesting a PICC nurse for a peripheral IV, she did not want anybody try it. She has IV antibiotic due this am.
--- NOTE | 2021-12-13 09:11 | NUR ---
Paged Dr. Vera PAGER ID: [phone] MESSAGE: Surgical Yulisa RN ext [phone] RE: Lia Gonzáles. Patient currently has no peripheral IV. She is having anxiety right now, requesting for PO Ativan 1mg. Can I have order for this?
--- NOTE | 2021-12-13 09:29 | NUR ---
I was called by another staff to check on my patient as she was having chest pain, patient appears very anxious. SBP 166. Charge Nurse Monica ordered EKG and she called for rapid response team to come. The EKG shows "inferior infarct, acute". Troponin STAT was ordered. Dr. Vera notified about the chest pain episode. I let him know that we were trying to get the PICC nurse put an IV on patient as she does not have one currently, he instructed me to give the IV Ativan as soon as we have a peripheral IV. PICC nurse Azeb placed a peripheral IV g20 on patient's left upper arm, Ativan 0.5mg IV given as indicated. Dr. Vera came to see the patient, reviewed the 12 lead EKG.
[2021-12-13] MEDS: LORazepam 2 mg/ml vial IV PRN (09:45)
--- NOTE | 2021-12-13 09:52 | NUR ---
Dr. Vera came to see patient at bedside. AIRCRAFT MANAGER Delilah at bedside
[2021-12-13] MEDS: piperacillin/tazo 3.375gm/50ml 50 ML IV SCH (10:02)
[2021-12-13 11:00] VITALS: BP 144/80
--- NOTE | 2021-12-13 12:18 | NUR ---
Patient's new peripheral IV on her left upper arm got infiltrated. Charge nurse Monica notified, she said she would page the PICC nurse to put another IV. Patient crying, asking for pain medicine. Oral pain medicine [employer] will be given to her, patient agreed with [employer]
--- NOTE | 2021-12-13 12:45 | NUR ---
Repaged PICC nurse to place another IV for this patient. Left upper arm was wrapped with warm blanket
--- NOTE | 2021-12-13 14:22 | NUR ---
Paged Dr. Vera PAGER ID: [phone] MESSAGE: Surgical Yulisa RN ext [phone]. RE: Manuela Gonzáles. Patient's new IV got infiltrated today. We've been paging PICC nurse to put a new one she has not responded yet. Do you want her to have midline placement by PICC nurse?
--- NOTE | 2021-12-13 14:28 | NUR ---
Dr. Vera called me back, he said to me "if we can't get an IV that's fine. We can go ahead and d/C the Zosyn order!" I asked Dr. Vera if he wants to switch the Zosyn to PO antibiotic he said no.
--- NOTE | 2021-12-13 17:00 | NUR ---
Dr. Patel at bedside assessing surgical wound.
[2021-12-13] MEDS: LORazepam 1 MG tablet PO PRN (17:37)
--- NOTE | 2021-12-13 17:40 | NUR ---
Patient told me that Dr. Patel pulled out her HARJEET drain
--- NOTE | 2021-12-13 19:27 | NUR ---
curing room supervisor Katharine came by to place a new peripheral IV line on this patient. Katharine COFFEY inserted a gauge 22 on patient's right wrist area. Peripheral IV line was flushed with saline flush without problem. Addendum: 12/13/21 at 1928 by Yulisa Obregon RN Above note was a late entry. Approximate time was around 1800
[2021-12-13 20:00] VITALS: BP 141/92
[2021-12-13] MEDS: doxepin 25mg capsule PO SCH (20:37)
[2021-12-13] MEDS: gabapentin 300mg capsule PO SCH (20:37)
[2021-12-14] VITALS: BP 117/63
[2021-12-14] MEDS: normal saline 1000ml 1,000 ML IV SCH ×2 (00:05→02:10)
[2021-12-14] MEDS: HYDROcodone/acetaminophen 10/325mg tab PO PRN ×4 (03:52→19:19)
--- NOTE | 2021-12-14 06:02 | NUR ---
Problems reprioritized. Patient report given, questions answered & plan of care reviewed with Yulisa COFFEY.
[2021-12-14 07:00] VITALS: BP 151/92
[2021-12-14] MEDS: HYDROmorphone inj. 0.5 MG/0.5 ML DISP.SYRIN IV PRN ×2 (07:07→10:56)
[2021-12-14] MEDS: pantoprazole 40mg Tablet.DR PO SCH ×2 (07:09→19:19)
[2021-12-14] MEDS: polyethylene glycol 3350 17gm powd pack PO SCH ×3 (07:09→21:00)
[2021-12-14] MEDS: ferrous sulfate 325mg tablet PO SCH (07:09)
[2021-12-14] MEDS: venlafaxine XR 75mg capsule (Q24H) PO SCH (07:09)
[2021-12-14] MEDS: docusate sod 100mg capsule PO SCH ×2 (07:12→19:18)
[2021-12-14 07:34] LABS: BASOPHILS # (AUTO) 0.1 X10'3 (0-0.2); BASOPHILS % (AUTO) 0.8 % (0-1); EOSINOPHILS # (AUTO) 0.4 X10'3 (0-0.9); HEMATOCRIT 33.9 % (35.0-45.0); HEMOGLOBIN 11.1 g/dl (12.0-16.0); LYMPHOCYTES # (AUTO) 1.2 X10'3 (1.1-4.8); LYMPHOCYTES % (AUTO) 11.5 % (21-51); MEAN CORPUSCULAR HEMOGLOBIN 28.1 PG (27.0-31.0); MEAN CORPUSCULAR HGB CONC 32.6 g/dL (33.0-36.5); MEAN CORPUSCULAR VOLUME 86.2 FL (78-98); MEAN PLATELET VOLUME 7.6 FL (7.4-10.4); MONOCYTES # (AUTO) 0.9 X10'3 (0-0.9); MONOCYTES % (AUTO) 8.3 % (2-12); NEUTROPHILS # (AUTO) 7.7 X10'3 (1.8-7.7); NEUTROPHILS % (AUTO) 75.4 % (42-75); PLATELET COUNT 393 X10'3 (140-440); RED BLOOD COUNT 3.94 X10'6 (4.20-5.60); WHITE BLOOD COUNT 10.2 X10'3 (4.5-11.0)
[2021-12-14 07:44] LABS: ALANINE AMINOTRANSFERASE 16 U/L (12-78); ALBUMIN 2.8 G/DL (3.4-5.0); ALBUMIN/GLOBULIN RATIO 0.9 (1.1-1.5); ALKALINE PHOSPHATASE 92 IU/L (46-116); ANION GAP 7 (8-16); ASPARTATE AMINO TRANSFERASE 15 U/L (10-37); BILIRUBIN,TOTAL 0.4 MG/DL (0.1-1.0); BLOOD UREA NITROGEN 5 MG/DL (7-18); BUN/CREATININE RATIO 8.9 (6.6-38.0); CALCIUM 8.2 MG/DL (8.5-10.1); CHLORIDE 103 MMOL/L (99-107); CREATININE 0.56 MG/DL (0.40-0.90); GLUCOSE 85 MG/DL (70-104); POTASSIUM 3.7 MMOL/L (3.5-5.1); SODIUM 138 MMOL/L (135-145); TOTAL PROTEIN 5.8 G/DL (6.4-8.2); eGFR > 90 ML/MIN
[2021-12-14] MEDS: metoprolol succinate 25mg (24-HOUR) SR. Tablet PO SCH (08:58)
[2021-12-14 11:00] VITALS: BP 133/71
--- NOTE | 2021-12-14 14:55 | NUR ---
Pt was alert and oriented, tearful during education. Pt was able to use a mirrior to watch while sitting at the side of the bed the pouch change. Pt was able to help close and demonstrated how to burp and empty out pouch. Goal is to have pt change out own pouch and empty prior to going home. Addendum: 12/14/21 at 1457 by Elisa Duke RN Amended: Links added.
--- NOTE | 2021-12-14 15:42 | NUR ---
Initial: Pt admit for colon cancer and large bowel obstruction. Pt s/p sigmoid resection with diverting colostomy POD #5. Attempted visit with pt at bedside for colostomy nutrition therapy education however pt very tearful in pain and requests verbal education be performed at another time. Pt provided with written materials with RD contact information and encouraged to reach out when she is feeling better if we have not already followed up. Pt verbalizes understanding and mentions that she has been following a low fiber diet at home. Patient's diet has just been advanced to regular from liquids, d/w RN recommendation for diet change to low fiber in view of recent GI surgery. LBM 12/13 documented with 100 mL stool output per I&O. Will continue to follow closely. Recommendations: 1) Change to low fiber diet in view of recent GI surgery 2) Bowel care per MD 3) Weekly scaled weights 4) Verbal colostomy nutrition therapy education once appropriate; written materials provided Addendum: 12/14/21 at [address] Amended: Links added.
[2021-12-14] MEDS: LORazepam 1 MG tablet PO PRN (16:38)
--- NOTE | 2021-12-14 18:29 | NUR ---
Problems reprioritized. Patient report given, questions answered & plan of care reviewed with Mckayla COFFEY.
[2021-12-14 19:00] VITALS: BP 131/83
[2021-12-14] MEDS: gabapentin 300mg capsule PO SCH (21:00)
[2021-12-14] MEDS: doxepin 25mg capsule PO SCH (21:00)
[2021-12-14] MEDS: normal saline 500ml IV soln 500 ML IV SCH (21:56)
[2021-12-14] MEDS: HYDROmorphone 2mg tablet PO PRN (21:57)
[2021-12-15] VITALS: BP 118/68
[2021-12-15] MEDS: HYDROcodone/acetaminophen 10/325mg tab PO PRN ×4 (02:55→23:26)
[2021-12-15 06:30] VITALS: BP 139/80
--- NOTE | 2021-12-15 06:40 | NUR ---
Patient in room [facility] 345. I have received report from ERLINDA Block and had the opportunity to ask questions and assume patient care.
--- NOTE | 2021-12-15 06:49 | NUR ---
Problems reprioritized. Patient report given, questions answered & plan of care reviewed with Snow RN.
[2021-12-15 07:07] LABS: BASOPHILS % (AUTO) 0.5 % (0-1); EOSINOPHILS # (AUTO) 0.4 X10'3 (0-0.9); EOSINOPHILS % (AUTO) 4.4 % (0-6); HEMATOCRIT 33.2 % (35.0-45.0); HEMOGLOBIN 10.9 g/dl (12.0-16.0); LYMPHOCYTES # (AUTO) 1.3 X10'3 (1.1-4.8); LYMPHOCYTES % (AUTO) 14.4 % (21-51); MEAN CORPUSCULAR HEMOGLOBIN 28.1 PG (27.0-31.0); MEAN CORPUSCULAR HGB CONC 32.7 g/dL (33.0-36.5); MEAN CORPUSCULAR VOLUME 85.8 FL (78-98); MEAN PLATELET VOLUME 7.9 FL (7.4-10.4); MONOCYTES % (AUTO) 10.7 % (2-12); NEUTROPHILS # (AUTO) 6.5 X10'3 (1.8-7.7); PLATELET COUNT 397 X10'3 (140-440); RED BLOOD COUNT 3.87 X10'6 (4.20-5.60); WHITE BLOOD COUNT 9.4 X10'3 (4.5-11.0)
[2021-12-15] MEDS: HYDROmorphone 2mg tablet PO PRN ×2 (07:10→15:01)
[2021-12-15 11:00] VITALS: BP 133/86
[2021-12-15] MEDS: polyethylene glycol 3350 17gm powd pack PO SCH ×4 (11:03→21:51)
[2021-12-15] MEDS: venlafaxine XR 75mg capsule (Q24H) PO SCH (11:03)
[2021-12-15] MEDS: ferrous sulfate 325mg tablet PO SCH (11:03)
[2021-12-15] MEDS: docusate sod 100mg capsule PO SCH ×3 (11:03→21:50)
[2021-12-15] MEDS: pantoprazole 40mg Tablet.DR PO SCH ×2 (11:03→20:29)
[2021-12-15] MEDS: metoprolol succinate 25mg (24-HOUR) SR. Tablet PO SCH (11:04)
[2021-12-15] MEDS: LORazepam 1 MG tablet PO PRN (11:21)
[2021-12-15 18:00] VITALS: BP 166/113
[2021-12-15 18:30] VITALS: BP 166/113
--- NOTE | 2021-12-15 18:30 | NUR ---
Problems reprioritized. Patient report given, questions answered & plan of care reviewed with ERLINDA Rodriguez.
--- NOTE | 2021-12-15 18:45 | NUR ---
Patient in room [facility] 345. I have received report from Snow COFFEY and had the opportunity to ask questions and assume patient care.
--- NOTE | 2021-12-15 19:00 | NUR ---
Patient only ate a few bites of her dinner, but did eat 2 x yoghurts.
[2021-12-15] MEDS: gabapentin 300mg capsule PO SCH (20:27)
[2021-12-15] MEDS: doxepin 25mg capsule PO SCH (20:28)
[2021-12-15] MEDS: normal saline 500ml IV soln 500 ML IV SCH (21:20)
[2021-12-15 23:50] VITALS: BP 121/67
[2021-12-16] MEDS: HYDROcodone/acetaminophen 10/325mg tab PO PRN ×3 (03:17→13:47)
--- NOTE | 2021-12-16 06:20 | NUR ---
Problems reprioritized. Patient report given, questions answered & plan of care reviewed with Concetta COFFEY and nursing program director Phuc. Addendum: 12/16/21 at 0643 by Jennifer Whyte RN The nursing program director is Vaughn Grant
--- NOTE | 2021-12-16 06:46 | NUR ---
Patient in room [facility] 345. I have received report from Jnenifer COFFEY and had the opportunity to ask questions and assume patient care.
--- NOTE | 2021-12-16 06:49 | NUR ---
Patient in room [facility] 345A. I have received report from ERLINDA DIANE and had the opportunity to ask questions and assume patient care.
[2021-12-16 07:18] VITALS: BP 147/77
[2021-12-16] MEDS: metoprolol succinate 25mg (24-HOUR) SR. Tablet PO SCH (07:22)
[2021-12-16] MEDS: pantoprazole 40mg Tablet.DR PO SCH (07:22)
[2021-12-16] MEDS: ferrous sulfate 325mg tablet PO SCH (07:22)
[2021-12-16] MEDS: venlafaxine XR 75mg capsule (Q24H) PO SCH (07:23)
[2021-12-16] MEDS: ondansetron/PF 4mg/2ml inj IV PRN (07:46)
--- NOTE | 2021-12-16 08:46 | NUR ---
PATIENT STATES THEY ARE HAVING CHEST PAIN, PAGED DR AND GETTING AN EKG PER PROTOCOL
[2021-12-16] MEDS ORDERED: HYDR-3964 PO (11:21)
[2021-12-16] MEDS ORDERED: SENN-223 PO (11:28)
[2021-12-16] MEDS: polyethylene glycol 3350 17gm powd pack PO SCH (13:00)
--- NOTE | 2021-12-16 15:30 | NUR ---
Patient discharged home with family. Belongs sent, Ostomy care supplies provided to patient. IV DCed. Questions answered. Patient wheeled in W/C to lobby where her ride was waiting.
--- NOTE | 2021-12-16 16:07 | NUR ---
Student documentation: I have reviewed all interventions, assessments performed and documented by SN TAYA.
== END 2021-12-16 15:15 | disposition home health service (06) | DRG 330 ==
LOC: ER 15:17 → UNDOADMIN 12-09 00:02 → ED HOLD 12-09 00:02 → SUR 3N 12-09 02:47
PROVIDERS: ADMIT Family Medicine; ATTEND Internal Medicine
PROC: BW211ZZ Computerized Tomography (CT Scan) of Abdomen and Pelvis using Low Osmolar Contrast (ICD-10-PCS; 2021-12-08)
PROC: 0DBP4ZZ Excision of Rectum, Percutaneous Endoscopic Approach (ICD-10-PCS; 2021-12-09)
PROC: 0D1N4Z4 Bypass Sigmoid Colon to Cutaneous, Percutaneous Endoscopic Approach (ICD-10-PCS; principal; 2021-12-09 10:55)
DX: C19 Malignant neoplasm of rectosigmoid junction (principal); K56.699 Other intestinal obstruction unspecified as to partial versus complete obstruction; A09 Infectious gastroenteritis and colitis, unspecified; C78.7 Secondary malignant neoplasm of liver and intrahepatic bile duct; D62 Acute posthemorrhagic anemia; I10 Essential (primary) hypertension; G89.4 Chronic pain syndrome; F32.A Depression, unspecified; E11.9 Type 2 diabetes mellitus without complications; Z20.822 Contact with and (suspected) exposure to COVID-19; E78.5 Hyperlipidemia, unspecified; F41.0 Panic disorder [episodic paroxysmal anxiety]; F17.210 Nicotine dependence, cigarettes, uncomplicated; K21.9 Gastro-esophageal reflux disease without esophagitis; Z87.11 Personal history of peptic ulcer disease; Z85.3 Personal history of malignant neoplasm of breast; Z83.42 Family history of familial hypercholesterolemia; Z79.899 Other long term (current) drug therapy
CPT/HCPCS: 36000; 36415; 74178; 76937; 80053; 80061; 81003; 82948; 83036; 83605; 83690; 83735; 83880; 84100; 84134; 84145; 84484; 85025; 85610; 85730; 86140; 87040; 87081; 87635; 88309; 93005; 97116; 97162; 97530; 99285; A4618; A6258; A7000; C1758; C9113; C9803; G0378; J0360; J0694; J1100; J1170; J2060; J2250; J2270; J2405; J2543; J2704; J2710; J3010; J3260; J3490; J7030; J7040; J7120; Q9967